=== PATIENT | male | born 1975 | race Asian ===

== ENCOUNTER 2019-12-12 04:34 | Emergency (ER) | payer OTHER ==
[~2019-12-12] VITALS: Ht 170.2 cm; Wt 95.0 kg
[2019-12-12] MEDS ORDERED: BUPR100T3 PO (04:42)
[2019-12-12] MEDS ORDERED: PRAZ2CAP PO (04:42)
[2019-12-12] MEDS ORDERED: BUPR150T5 PO (04:42)
[2019-12-12] MEDS ORDERED: SERT-141 PO (04:42)
[2019-12-12] MEDS ORDERED: NS 1,000 ML IV ONE (05:30)
[2019-12-12 05:39] LABS: BASO % 0.4 % (0.0-1.0); EOS # 0.1 10^3/uL (0.0-0.5); EOS % 1.4 % (0.0-3.0); HEMATOCRIT 46.9 % (42.0-52.0); HEMOGLOBIN 13.9 g/dl (13.5-17.5); LYMPH # 2.1 10^3/uL (1.5-5.0); LYMPH % 20.4 % (24.0-44.0); MEAN CORPUSCULAR HGB CONC 29.6 g/dl (32.0-36.5); MEAN CORPUSCULAR VOLUME 67.4 fl (80.0-96.0); MONO # 0.8 10^3/uL (0.0-0.8); MONO % 7.3 % (0.0-5.0); NEUTROPHILS # 7.3 10^3/uL (1.5-8.5); NEUTROPHILS % 70.2 % (36.0-66.0); PLATELET COUNT, AUTOMATED 223 10^3/uL (150-450); RED BLOOD COUNT 6.96 10^6/uL (4.30-6.10); WHITE BLOOD COUNT 10.4 10^3/uL (4.0-10.0)
[2019-12-12 06:04] LABS: BILIRUBIN,DIRECT 0.7 MG/DL (0.0-0.2); BILIRUBIN,TOTAL 1.2 MG/DL (0.2-1.0); MB/CK RELATIVE INDEX 0.56 (< OR =4); TOTAL PROTEIN 7.9 GM/DL (6.4-8.2); TROPONIN I 0.05 NG/ML (< 0.10)
[2019-12-12] MEDS ORDERED: ISOVUE-370 76% 100ML VIAL (Q9967) As Ordered ONE (06:25)
[2019-12-12] MEDS ORDERED: KETOROLAC 30 MG/ML VIAL (J1885) IV ONE (06:30)
--- NOTE | 2019-12-12 06:50 | REPVR ---
PROCEDURE INFORMATION: Exam: CT Abdomen And Pelvis With Contrast Exam date and time: 12/12/2019 6:20 AM Age: 44 years old Clinical indication: Abdominal pain; Localized; Right; Additional info: Right sided abd pain TECHNIQUE: Imaging protocol: Computed tomography of the abdomen and pelvis with intravenous contrast. Radiation optimization: All CT scans at this facility use at least one of these dose optimization techniques: automated exposure control; mA and/or kV adjustment per patient size (includes targeted exams where dose is matched to clinical indication); or iterative reconstruction. Contrast material: ISO; Contrast volume: 100 ml; Contrast route: AC; COMPARISON: No relevant prior studies available. FINDINGS: Lungs: A small amount of atelectasis is seen in the visualized lung bases. Diaphragm: There is elevation of the right hemidiaphragm. Liver: There is a heterogeneous decrease in hepatic parenchymal density, consistent with fatty infiltration. Gallbladder and bile ducts: Gallstones are present in the fundus of the gallbladder. There is equivocal mild thickening of the gallbladder wall. There are no adjacent inflammatory changes. There is a calcified stone in the distal common bile duct measuring 7 mm in diameter. The common bile duct is mildly dilated, measuring 8 mm in the supra pancreatic portion. Pancreas: The pancreas is normal with no ductal dilation. Spleen: The spleen is normal. Adrenals: The adrenal glands are normal. Kidneys and ureters: There is a 12 mm simple cyst in the left kidney. No imaging follow-up needed. The right kidney is normal. There are no ureteral stones or hydronephrosis. Stomach and bowel: The small bowel appears unremarkable. There is no dilation or thickening of the colon. Appendix: A normal appendix is identified. Intraperitoneal space: There is no evidence of free intraperitoneal or pelvic fluid. There is no free intraperitoneal air. Vasculature: No aortic aneurysm. Lymph nodes: No lymphadenopathy is seen. Bladder: The bladder is unremarkable. No stones identified. Reproductive: The prostate gland and seminal vesicles are normal. Bones/joints: Mild degenerative endplate changes are noted in the visualized spine. Soft tissues: The soft tissues appear unremarkable. IMPRESSION: 1. Mild biliary ductal dilation and choledocholithiasis with a 7 mm calcified stone in the distal common bile duct. 2. Cholelithiasis. Equivocal mild gallbladder wall thickening. No adjacent inflammatory changes. COMMENTS: Consistent with the [employer]'s Incidental Findings Committee white paper (J Am Gini Radiol 2018): Any incidental cystic renal lesion classified in this report as too small to characterize or simple appearing is likely a benign cyst. No follow-up imaging is recommended for these lesions per consensus recommendations based on imaging criteria. Electronically signed by: Lulú Harvey On 12/12/2019 06:50:13 AM
--- NOTE | 2019-12-12 06:55 | REPVR ---
PROCEDURE INFORMATION: Exam: US Abdomen Limited, Right Upper Quadrant Exam date and time: 12/12/2019 6:46 AM Age: 44 years old Clinical indication: Abdominal pain; Epigastric; Additional info: Ruq abd pain TECHNIQUE: Imaging protocol: Real-time ultrasound of the abdomen with image documentation. Examination was focused on the right upper quadrant. COMPARISON: CT ABD/PEL W/IV CONTRAST ONLY 12/12/2019 6:29 AM FINDINGS: Limitations: Examination is somewhat limited related to body habitus and bowel gas. Liver: The liver is echogenic with attenuation of the ultrasound beam, consistent with fatty liver. Gallbladder: Gallstones are present. There is no significant gallbladder wall thickening . The gallbladder wall measures 3 mm in thickness. The agricultural research technologist reports a negative Garcia's sign. Common bile duct: The common bile duct is not seen in its entirety. Where visible, it appears normal in size measuring 5 mm. Pancreas: The pancreas is obscured by bowel gas. Right kidney: The right kidney is normal in size and echogenicity with no hydronephrosis or stones identified. The right kidney measures 11.1 cm in length. IMPRESSION: 1. Cholelithiasis, as seen on the CT scan. No signs of acute cholecystitis. 2. Limited visibility of the bile duct and the pancreas. Biliary ductal dilation and choledocholithiasis identified on CT are not visible on this exam. 3. Fatty liver, as seen on the CT scan. Electronically signed by: Lulú Harvey On 12/12/2019 06:54:34 AM
[2019-12-12] MEDS ORDERED: LEVS0.124 SL (07:21)
[2019-12-12 07:44] VITALS: BP 140/84
--- NOTE | 2019-12-12 15:58 | ED PDOC ---
Post-Departure Follow-Up ft zayda marks faxed formal report of ct abd/p for fu Jono Vuong MD Dec 12, 2019 15:58
--- NOTE | 2019-12-12 15:59 | ED PDOC ---
Post-Departure Follow-Up gb us also faxed to bree marks for fu Jono Vuong MD Dec 12, 2019 15:59
[2019-12-13] MEDS ORDERED: HYOS0.1214 PO (06:10)
[2019-12-13] MEDS ORDERED: PRAZ2CAP PO (06:10)
[2019-12-13] MEDS ORDERED: BUPR150T3 PO (06:10)
[2019-12-13] MEDS ORDERED: D3 A1000 PO (06:10)
== END 2019-12-12 07:49 | disposition home or self-care (01) ==
LOC: M ED 04:34
DX: K80.70 Calculus of gallbladder and bile duct without cholecystitis without obstruction (principal); F43.10 Post-traumatic stress disorder, unspecified; Z79.899 Other long term (current) drug therapy
CPT/HCPCS: 74177; 76705; 80047; 80076; 82550; 82553; 83690; 84484; 85025; 93041; 96374; 99284; J1885; Q9967

== ENCOUNTER 2019-12-13 02:40 | Inpatient (IN) | payer OTHER ==
[~2019-12-13] VITALS: Ht 170.2 cm; Wt 95.0 kg
[2019-12-13] VITALS (10 sets, daily range): BP systolic 119–158; BP diastolic 63–85
[~2019-12-13 02:40] MED LIST: BUPR100T3 PO; BUPR150T5 PO; LEVS0.124 SL; PRAZ2CAP PO; SERT-141 PO
[2019-12-13] MEDS ORDERED: NS 1,000 ML IV ONE (03:30)
[2019-12-13 03:40] LABS: BASO % 0.5 % (0.0-1.0); EOS # 0.1 10^3/uL (0.0-0.5); HEMATOCRIT 44.9 % (42.0-52.0); HEMOGLOBIN 13.7 g/dl (13.5-17.5); LYMPH # 1.1 10^3/uL (1.5-5.0); MEAN CORPUSCULAR HEMOGLOBIN 20.2 pg (27.0-33.0); MEAN CORPUSCULAR HGB CONC 30.5 g/dl (32.0-36.5); MEAN CORPUSCULAR VOLUME 66.2 fl (80.0-96.0); MONO # 0.5 10^3/uL (0.0-0.8); MONO % 6.7 % (0.0-5.0); NEUTROPHILS # 6.3 10^3/uL (1.5-8.5); NEUTROPHILS % 77.6 % (36.0-66.0); PLATELET COUNT, AUTOMATED 210 10^3/uL (150-450); RED BLOOD COUNT 6.78 10^6/uL (4.30-6.10); WHITE BLOOD COUNT 8.1 10^3/uL (4.0-10.0)
[2019-12-13] MEDS ORDERED: KETOROLAC 30 MG/ML VIAL (J1885) IV ONE (04:00)
[2019-12-13 04:21] LABS: ALBUMIN 3.6 GM/DL (3.2-5.2); BILIRUBIN,DIRECT 4.2 MG/DL (0.0-0.2); BILIRUBIN,TOTAL 5.9 MG/DL (0.2-1.0); TOTAL PROTEIN 7.4 GM/DL (6.4-8.2)
--- NOTE | 2019-12-13 05:13 | REPVR ---
PROCEDURE INFORMATION: Exam: US Abdomen Limited, Right Upper Quadrant Exam date and time: 12/13/19 (4:13am) Age: 44 years old Clinical indication: RUQ / epigastric pain TECHNIQUE: Imaging protocol: Real-time ultrasound of the abdomen with image documentation. Examination was focused on the right upper quadrant. COMPARISON: US ABDOMEN (limited) of 12/12/19 (6:42am) FINDINGS: The liver is visually normal in size, with fatty infiltration. Distended gallbladder, containing multiple echogenic gallstones. Gallbladder fold. The gallbladder has normal wall thickness (2.8 mm). No pericholecystic fluid is appreciated. The sonographic Garcia's sign is reported to be (-). The CBD is mildly dilated (5.5 mm diameter). The pancreas is obscured by bowel gas. The right kidney measures 11.3 cm in length, with no hydronephrosis appreciated. No ascites is seen. IMPRESSION: No definite evidence of acute cholecystitis. Distended gallbladder, containing multiple stones. Normal gallbladder wall thickness. The sonographic Garcia's sign is reported to be (-). The CBD is mildly dilated (distal CBD stone seen on recent CT scan). In general, similar findings were noted on ultrasound done 22 hours ago. Electronically signed by: Italia Ashford On 12/13/2019 05:12:53 AM
[2019-12-13] MEDS ORDERED: MORPHINE 4 MG/ML 1ML VIAL/SYRINGE (J2270) IV PRN ×2 (05:45→06:15)
[2019-12-13] MEDS ORDERED: ONDANSETRON 4MG/2ML VIAL (J2405) IV ONE (05:45)
[2019-12-13] MEDS ORDERED: HYOS0.1214 PO (06:10)
[2019-12-13] MEDS ORDERED: D3 A1000 PO (06:10)
[2019-12-13] MEDS ORDERED: BUPR150T3 PO (06:10)
[2019-12-13] MEDS ORDERED: PRAZ2CAP PO (06:10)
[2019-12-13] MEDS ORDERED: MAALOX 30 ML SUSP *UDC PO PRN (06:15)
[2019-12-13] MEDS ORDERED: MOM 30ML SUSPENSION UDC PO PRN (06:15)
--- NOTE | 2019-12-13 06:29 | HPEPDOC ---
General Date of Admission Date of Service: Dec 13, 2019 Chief Complaint The patient is a 44-year-old male admitted with a reason for visit of Abd Pain. Source: Patient Timing/Duration: 24 hours Severity: Severe Associated Symptoms: Loss of appetite, Nausea History of Present Illness 44-year-old male with past history of PTSD presents for worsening abdominal pain. Patient was seen in the ER yesterday for similar complaints. Workup at that time revealed a distal common bile duct stone with some mild elevated transaminitis noted as well. However, after pain control patient was discharged from the ER with instructions to follow-up with his PCP. Patient presents today as he states that his pain got much worse and he also developed jaundice. Patient says that around 1 AM this morning, he felt severe right upper quadrant pain characterized as 10 out of 10 in intensity. The pain is colicky in nature and has now started to radiate to his back. Given his pain, his dropped off at the ER for further evaluation. Patient denies any recent fevers, chills, short of breath, chest pain, episodes of vomiting. He does state that his urine is now a dark red color and he has not had a bowel movement since yesterday. He also noted that his skin has been turning more yellow over the past several days as well. He denies any pruritus at the moment. Repeat ultrasound of the abdomen reveals similar findings to yesterday with some mild CBD dilation. Labs however reveal a significant jump in liver enzymes and serum bilirubin. Patient denies any recent travel history or sick contacts. He currently lives at home with his and works in the [employer]. He is a nonsmoker, nondrinker, nondrug user. Hospitalist called for admission for management of likely choledocholithiasis. 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 A-FIB/CHADSVASC A-FIB History Current/History of A-Fib/PAF?: No Review of Systems Constitutional: Denies: Chills, Fever, Night Sweats, Weakness, Fatigue Eyes: Reports: Pain, Other (yellowing of eyes); Denies: Vision change ENT: Denies: Head Aches, Ear Pain, Sore Throat Skin: Reports: Jaundice; Denies: Rash, Lesions Pulmonary: Denies: Dyspnea, Cough Cardiovascular: Denies: Chest Pain, Palpitations, Orthopnea, Edema Gastrointestinal: Reports: Nausea, Abdominal Pain; Denies: Vomiting, Diarrhea, Constipation, Melena Genitourinary: Reports: Other Symptoms (darkening of urine); Denies: Dysuria, Frequency Hematologic: Denies: Bruising Musculoskeletal: Reports: Back Pain; Denies: Shoulder Pain, Arm Pain, Muscle Pain, Spasms Psych: Reports: Mood Normal; Denies: Anxiety, Depression, Thoughts of Self Harm Physical Examination General Exam: Positive: Alert, Mild Distress, Other (patient appears to be uncomfortable in bed, holding his abdomen with his eyes closed. Able to conversation and is pleasant.) Eye Exam: Positive: PERRLA, EOMI, Sclera icteric ENT Exam: Positive: Atraumatic, Mucous membr. moist/pink; Negative: Pharyngeal Edema Neck Exam: Positive: Supple, +2 carotid pulse wo bruit; Negative: JVD Chest Exam: Positive: Clear to auscultation, Normal air movement Heart Exam: Positive: Rate Normal, Regular Rhythm, Normal S1, Normal S2; Negative: Gallops, Murmurs, Rubs Abdomen Exam: Positive: Normal bowel sounds, Soft, Tenderness (tender to palpation of the right upper quadrant with equivocal Garcia sign on my exam, some voluntary guarding); Negative: Hepatospenomegaly, Mass Extremity Exam: Positive: Normal pulses; Negative: Clubbing, Edema Skin Exam: Positive: Nl turgor and temperature, Other skin issue (jaundice of the skin noted); Negative: Rash Neuro Exam: Positive: Normal Gait, Normal Speech, Strength at 5/5 X4 ext, Normal Tone, Cranial Nerves 3-12 NL Psych Exam: Positive: Mental status NL, Mood NL Vital Signs Vital Signs Date Time Temp Pulse Resp B/P (MAP) Pulse Ox O2 Delivery O2 Flow Rate FiO2 12/13/19 05:57 66 15 122/70 (87) 99 12/13/19 02:40 97.9 Laboratory Data Labs 24H Laboratory Tests 2 12/13/19 03:32: Immature Granulocyte % (Auto) 0.2, Neutrophils (%) (Auto) 77.6H, Lymphocytes (%) (Auto) 14.0L, Monocytes (%) (Auto) 6.7H, Eosinophils (%) (Auto) 1.0, Basophils (%) (Auto) 0.5, Neutrophils # (Auto) 6.3, Lymphocytes # (Auto) 1.1L, Monocytes # (Auto) 0.5, Eosinophils # (Auto) 0.1, Basophils # (Auto) 0.0, Nucleated Red Blood Cells % (auto) 0.0, Total Bilirubin 5.9#H, Direct Bilirubin 4.2H, Aspartate Amino Transf (AST/SGOT) 827H, Alanine Aminotransferase (ALT/SGPT) 955H, Alkaline Phosphatase 110, Total Protein 7.4, Albumin 3.6, Albumin/Globulin Ratio 0.95L, Lipase 265 12/13/19 03:37: POC Glucose (Misc Panel) 167H, POC Sodium (Misc Panel) 138, POC Potassium (Misc Panel) 3.8, POC Chloride (Misc Panel) 100, POC Total CO2 (Misc Panel) 26.0, POC Blood Urea Nitrogen (Misc Panel 13, POC Ionized Calcium (Misc Panel) 4.5, POC Creatinine (Misc Panel) 1.2, POC Hematocrit (Misc Panel) 46.0 12/13/19 04:58: Urine Color MARGO, Urine Appearance CLEAR, Urine pH 7.0, Urine Specific Harvey 1.013, Urine Protein NEGATIVE, Urine Glucose (UA) NEGATIVE, Urine Ketones NEGATIVE, Urine Blood 1+H, Urine Nitrite NEGATIVE, Urine Bilirubin 1+H, Urine Urobilinogen 2.0H, Urine Leukocyte Esterase NEGATIVE, Urine WBC (Auto) 0, Urine RBC (Auto) 7H, Urine Hyaline Casts (Auto) 0, Urine Bacteria (Auto) NEGATIVE, Urine Squamous Epithelial Cells 0, Urine Mucus (Auto) SMALL, Urine Sperm (Auto) CBC/BMP Laboratory Tests 12/13/19 03:32 RAD Interpretation STUDY: ultrasound abdomen Rad Actions: Report Reviewed, Films Reviewed, Discussed with the pt RAD Interpretation: Unchanged (no evidence of acute cholecystitis, mild dilation of the common bile duct, gallstones seen) Assessment/Plan 44-year-old male presents with abdominal pain likely secondary to gallstones. Concern for obstruction at this time given elevating transaminitis as well as increase in serum bilirubin causing jaundice. Patient require MRCP for further evaluation and will likely need GI consult if stone is seen. Given his symptomatic presentation, surgery will likely need to be an option at this time. We'll admit for pain control further workup. Plan / VTE VTE Prophylaxis Ordered?: Yes Plan Plan Right upper quadrant pain, transaminitis, elevating bilirubin likely secondary to choledocholithiasis Patient appears to have an obstruction in the bile ducts leading to transaminitis and a Esther static pattern with increase in serum bilirubin overnight. Patient appears to be jaundiced at this time as well. Ultrasound does show distal common bile duct stone as well as CT from last night. Patient will need to undergo MRCP at this time for further evaluation. - Nothing by mouth for now - Start IVF at 150 mL per hour normal saline - IV Morphine 4 mg when necessary every 4 hours - MRCP today - If stone is seen, will need urgent GI consult for ERCP - Will need surgery consult once workup is complete for cholecystectomy - Monitor serum bilirubin, LFTs daily PTSD Currently mood is stable. Will continue with all medications at this time - Continue with sertraline, buproprion, and prazosin as per home dose. IVF: Initiate Diet: Make NPO Activity: Continue Current Medications: Increase Pain Meds Diagnostics: Check Labs, MRI Anticipated Discharge: Home MONET CHADWICK MD Dec 13, 2019 06:29
[2019-12-13] MEDS ORDERED: ONDANSETRON 4MG/2ML VIAL (J2405) IV PRN ×2 (06:30→16:30)
[2019-12-13] MEDS: NS 1,000 ML IV SCH ×2 (08:12→18:06)
[2019-12-13] MEDS: DOCUSATE SODIUM 100 MG CAP PO SCH ×2 (08:12→20:24)
[2019-12-13] MEDS: SERTRALINE HCL 50 MG TAB PO SCH (08:12)
[2019-12-13] MEDS: buPROPion **XL** TABLET 150MG (WELLBUTRIN XL) PO SCH (08:12)
--- NOTE | 2019-12-13 10:08 | REP ---
MRCP: MRCP is accomplished utilizing multiple heavily T2-weighted sequences in the axial and coronal planes. 3D MIP reconstruction images are performed. Gallbladder demonstrates multiple gallstones. Gallbladder is mildly distended. Common hepatic duct is upper limits of normal at 7 mm. Common bile duct has a maximum diameter of 5 mm. There is no intrahepatic biliary dilatation. There is a filling defect and calculus in the distal common bile duct 6 mm in diameter. Pancreatic duct is normal in caliber. Oval hyperintensity in the left lobe of the liver superiorly measures 1.4 cm in maximum diameter. This probably represents a small hemangioma. Spleen is normal in size. Adrenal glands are unremarkable. There is a small cyst of the upper pole of the left kidney measuring 1 cm in diameter. There is no evidence of adenopathy or free fluid. IMPRESSION: Multiple gallstones in the gallbladder. 6 mm stone in the distal common bile duct. The common hepatic duct measures 7 mm, at the upper limits of normal. Electronically Signed by Matthew Bronson MD 12/13/2019 10:53 A
[2019-12-13] MEDS ORDERED: ISOVUE-300 61% 50ML VIAL (Q9967) As Ordered ONE ×2 (14:41→15:41)
[2019-12-13] MEDS ORDERED: ROCURONIUM BROMIDE 50 MG/5 ML VIAL As Ordered ONE (14:47)
[2019-12-13] MEDS ORDERED: LIDOCAINE 2% INJ 100 MG/5 ML SDV (FOR ANES.) As Ordered ONE (14:47)
[2019-12-13] MEDS ORDERED: MIDAZOLAM INJ 2 MG/2 ML VIAL (J2250) As Ordered ONE (14:47)
[2019-12-13] MEDS ORDERED: fentaNYL 100 MCG/2 ML INJECTION (J3010) As Ordered ONE (14:47)
[2019-12-13] MEDS ORDERED: propofoL 200 MG/20 ML VIAL As Ordered ONE ×2 (14:47→15:44)
[2019-12-13] MEDS ORDERED: dexameTHASONE 4 MG/ML 1ML VIAL (J1100) As Ordered ONE (15:15)
[2019-12-13] MEDS ORDERED: ONDANSETRON 4MG/2ML VIAL (J2405) As Ordered ONE (15:32)
[2019-12-13] MEDS ORDERED: PHENYLephrine HCL 500 MCG/5 ML (100MCG/ML) SYRINGE (J2370) As Ordered ONE (15:33)
[2019-12-13] MEDS ORDERED: SUGAMMADEX SODIUM 500 MG/5 ML VIAL (BRIDION) As Ordered ONE (15:43)
--- NOTE | 2019-12-13 15:50 | IPNPDOC ---
Date Seen The patient was seen on 12/13/19. Progress Note SUBJECTIVE: Patient was seen and examined at the bedside this morning. He reports that his pain is well-controlled. He denies any nausea/vomiting/diarrhea at this time. All of his questions regarding his impending ERCP were answered. OBJECTIVE PHYSICAL EXAMINATION: VITAL SIGNS: Please see below. GENERAL APPEARANCE: Laying in bed, appears stated age, no acute distress, calm, cooperative HEENT: EOMI, PERRLA, neck is supple with no thyromegaly or lymphadenopathy RESPIRATORY: Lungs are clear to auscultation bilaterally with no adventitious breath sounds appreciated CARDIOVASCULAR: no JVD, RRR,no murmurs/rubs/gallops ABDOMEN: slightly tender to palpation in epigastrum and RUQ, +BS, no masses or organomegaly EXTREMITIES: no clubbing, cyanosis or edema noted NEUROLOGICAL: No obvious focal deficits PSYCHIATRIC: normal mood/affect Skin: No rashes or ulcers. LN: No significant cervical or inguinal lymphadenopathy LABORATORY DATA, IMAGING STUDIES, MICROBIOLOGY: Please see below. DVT prophylaxis ordered?: none ASSESSMENT AND PLAN: This is a 44-year male who presented to the emergency room with abdominal pain, epigastric and right upper quadrant found to have gallstones. He will go for ERCP today. PROBLEMS: 1. Choledocholithiasis: -GI consulted. Plan for ERCP at 1600 today. -Pain management with IV Morphine 4mg Q4H PRN -IV Zofran -IVF NS 150cc/hr -Will start diet after procedure -Will trend LFTs, bilirubin DISPOSITION: Pending ERCP, resolution of transaminitis, will start diet, possible dc within 48h VS, I&O, 24H, Priscilla Vital Signs/I&O Vital Signs Date Time Temp Pulse Resp B/P (MAP) Pulse Ox O2 Delivery O2 Flow Rate FiO2 12/13/19 14:00 99.8 78 18 155/85 (108) 99 I&O- Last 24 Hours up to 6 AM 12/13/19 06:00 Intake Total 1000 ml Balance 1000 ml Laboratory Data 24H LABS Laboratory Tests 2 12/13/19 03:32: Immature Granulocyte % (Auto) 0.2, Neutrophils (%) (Auto) 77.6H, Lymphocytes (%) (Auto) 14.0L, Monocytes (%) (Auto) 6.7H, Eosinophils (%) (Auto) 1.0, Basophils (%) (Auto) 0.5, Neutrophils # (Auto) 6.3, Lymphocytes # (Auto) 1.1L, Monocytes # (Auto) 0.5, Eosinophils # (Auto) 0.1, Basophils # (Auto) 0.0, Nucleated Red Blood Cells % (auto) 0.0, Total Bilirubin 5.9#H, Direct Bilirubin 4.2H, Aspartate Amino Transf (AST/SGOT) 827H, Alanine Aminotransferase (ALT/SGPT) 955H, Alkaline Phosphatase 110, Total Protein 7.4, Albumin 3.6, Albumin/Globulin Ratio 0.95L, Lipase 265 12/13/19 03:37: POC Glucose (Misc Panel) 167H, POC Sodium (Misc Panel) 138, POC Potassium (Misc Panel) 3.8, POC Chloride (Misc Panel) 100, POC Total CO2 (Misc Panel) 26.0, POC Blood Urea Nitrogen (Misc Panel 13, POC Ionized Calcium (Misc Panel) 4.5, POC Creatinine (Misc Panel) 1.2, POC Hematocrit (Misc Panel) 46.0 12/13/19 04:58: Urine Color MARGO, Urine Appearance CLEAR, Urine pH 7.0, Urine Specific Umbarger 1.013, Urine Protein NEGATIVE, Urine Glucose (UA) NEGATIVE, Urine Ketones NEGA TIVE, Urine Blood 1+H, Urine Nitrite NEGATIVE, Urine Bilirubin 1+H, Urine Urobilinogen 2.0H, Urine Leukocyte Esterase NEGATIVE, Urine WBC (Auto) 0, Urine RBC (Auto) 7H, Urine Hyaline Casts (Auto) 0, Urine Bacteria (Auto) NEGATIVE, Urine Squamous Epithelial Cells 0, Urine Mucus (Auto) SMALL, Urine Sperm (Auto) CBC/BMP Laboratory Tests 12/13/19 03:32 GME ATTESTATION GME ATTESTATION My faculty preceptor for this patient encounter was physically present during the encounter and was fully available. All aspects of the patient interview, examination, medical decision making process, and medical care plan development were reviewed and approved by the faculty preceptor. The faculty preceptor is aware and concurs with the plan as stated in the body of this note and will attest to such by his/her cosignature. MEENA HUGHES MD Dec 13, 2019 15:50
--- NOTE | 2019-12-13 15:56 | ROOR ---
Patient Name: Zohaib Gage Procedure Date: 12/13/2019 2:49 PM Date of : 1975 Age: 44 Room: Main OR Gender: Male Note Status: Finalized Procedure: ERCP Indications: Abdominal pain of suspected biliary origin, Abnormal MRCP, Evaluation and possible treatment of bile duct stone(s), Jaundice Providers: Joao HONEYCUTT MD Referring MD: 2. Inpatient 2. Inpatient Requesting Provider: Medicines: Monitored Anesthesia Care Complications: No immediate complications. Procedure: Pre-Anesthesia Assessment: - The heart rate, respiratory rate, oxygen saturations, blood pressure, adequacy of pulmonary ventilation, and response to care were monitored throughout the procedure. The Duodenoscope was introduced through the mouth, and advanced to the duodenum and used to inject contrast into the bile duct. The ERCP was accomplished without difficulty. The patient tolerated the procedure well. Findings: The wound care specialist film was normal. The esophagus was successfully intubated under direct vision. The scope was advanced to a normal major papilla in the descending duodenum without detailed examination of the pharynx, larynx and associated structures, and upper GI tract. The upper GI tract was grossly normal. A wire was passed into the biliary tree. The bile duct was then deeply cannulated over the guidewire. Contrast was injected. I personally interpreted the bile duct images. Ductal flow of contrast was adequate. Image quality was adequate. Contrast extended to the entire biliary tree. Choledocholithiasis was found in a minimally dilated/nondilated duct. Opacification of the main bile duct was successful. The maximum diameter of the ducts was 6-7 mm. The in the biliary system contained one stone, which was 5 mm in diameter. A 7 mm biliary sphincterotomy was made with a traction (standard) sphincterotome using ERBE electrocautery. There was no post-sphincterotomy bleeding. The biliary tree was swept with a 9 mm balloon starting at the bifurcation. All stones were removed. Impression: - Choledocholithiasis was found. Complete removal was accomplished by biliary sphincterotomy and balloon extraction. - A biliary sphincterotomy was performed. - The biliary tree was swept. Recommendation: - Surgical consultation with Dr Hugo as outpatient for consideration of cholecystectomy at the next available appointment. - [facility]. - [facility] to [facility] for possible discharge same day. - Low fat diet. - Advance diet as tolerated. Joao Honeycutt MD Joao HONEYCUTT MD 12/13/2019 3:56:10 PM Electronically signed by Joao HONEYCUTT MD Number of Addenda: 0 Note Initiated On: 12/13/2019 2:49 PM Estimated Blood Loss: Estimated blood loss: none.
[2019-12-13] MEDS ORDERED: LR 1,000 ML IV SCH (16:30)
[2019-12-13] MEDS ORDERED: fentaNYL 100 MCG/2 ML INJECTION (J3010) IV PRN (16:30)
--- NOTE | 2019-12-13 16:37 | REP ---
HISTORY: Fluoroscopy provided Dr. Joao Honeycutt during common bile duct stone extraction. 5 minutes 48 seconds of fluoroscopy time was provided Dr. Honeycutt for the procedure. 21 images were obtained in my absentia using a portable C-Arm device. The images have been submitted to the department of radiology for review. Electronically Signed by Roque Rao DO 12/13/2019 05:23 P
[2019-12-13] MEDS ORDERED: PRAZOSIN 1 MG CAP PO SCH (21:00)
[2019-12-14] MEDS: NS 1,000 ML IV SCH ×2 (00:31→02:15)
[2019-12-14 02:00] VITALS: BP 116/69
[2019-12-14 05:55] LABS: HEMATOCRIT 39.1 % (42.0-52.0); HEMOGLOBIN 12.1 g/dl (13.5-17.5); MEAN CORPUSCULAR HEMOGLOBIN 20.6 pg (27.0-33.0); MEAN CORPUSCULAR HGB CONC 30.9 g/dl (32.0-36.5); MEAN CORPUSCULAR VOLUME 66.7 fl (80.0-96.0); PLATELET COUNT, AUTOMATED 179 10^3/uL (150-450); RED BLOOD COUNT 5.86 10^6/uL (4.30-6.10)
[2019-12-14 06:00] VITALS: BP 129/71
[2019-12-14 06:17] LABS: ALT/SGPT 689 U/L (12-78); BILIRUBIN,TOTAL 4.1 MG/DL (0.2-1.0); BLOOD UREA NITROGEN 8 MG/DL (7-18); CALCIUM LEVEL 8.1 MG/DL (8.5-10.1); CARBON DIOXIDE LEVEL 27 MEQ/L (21-32); CHLORIDE LEVEL 109 MEQ/L (98-107); GLOMERULAR FILTRATION RATE > 60.0 (>60); GLUCOSE, FASTING 112 MG/DL (70-100); POTASSIUM SERUM 3.6 MEQ/L (3.5-5.1); SODIUM LEVEL 142 MEQ/L (136-145); TOTAL PROTEIN 6.4 GM/DL (6.4-8.2)
[2019-12-14] MEDS: DOCUSATE SODIUM 100 MG CAP PO SCH (09:00)
[2019-12-14 10:00] VITALS: BP 133/68
[2019-12-14] MEDS: SERTRALINE HCL 50 MG TAB PO SCH (10:06)
[2019-12-14] MEDS: buPROPion **XL** TABLET 150MG (WELLBUTRIN XL) PO SCH (10:06)
[2019-12-14] MEDS ORDERED: KETO10TAB PO (12:11)
--- NOTE | 2019-12-14 15:55 | DS.PDOC ---
Discharge Summary General Date of Admission Dec 13, 2019 at 06:03 Date of Discharge December 14, 2019 Attending Physician: NAZIA GARCIA DO Specialist/Consultants Involve: KEY BYRNE MD Discharge Summary PROCEDURES PERFORMED DURING STAY: [None]. ADMITTING DIAGNOSES: 1. Choledocholithiasis DISCHARGE DIAGNOSES: 1. Choledocholithiasis COMPLICATIONS/CHIEF COMPLAINT: Choledoclithiasis With Obstruction. HISTORY OF PRESENT ILLNESS: 44-year-old male with past history of PTSD presents for worsening abdominal pain. Patient was seen in the ER yesterday for similar complaints. Workup at that time revealed a distal common bile duct stone with some mild elevated transaminitis noted as well. However, after pain control patient was discharged from the ER with instructions to follow-up with his PCP. Patient presents today as he states that his pain got much worse and he also developed jaundice. Patient says that around 1 AM this morning, he felt severe right upper quadrant pain characterized as 10 out of 10 in intensity. The pain is colicky in nature and has now started to radiate to his back. Given his pain, his dropped off at the ER for further evaluation. Patient denies any recent fevers, chills, short of breath, chest pain, episodes of vomiting. He does state that his urine is now a dark red color and he has not had a bowel movement since yesterday. He also noted that his skin has been turning more yellow over the past several days as well. He denies any pruritus at the moment. Repeat ultrasound of the abdomen reveals similar findings to yesterday with some mild CBD dilation. Labs however reveal a significant jump in liver enzymes and serum bilirubin. Patient denies any recent travel history or sick contacts. He currently lives at home with his and works in the [employer]. He is a nonsmoker, nondrinker, nondrug user. Hospitalist called for admission for management of likely choledocholithiasis. HOSPITAL COURSE: The patient presented with abdominal pain and nausea found to have dilated gallbladder and CBD, gallstones on gallbladder US. An MRCP was performed and patient was found to have 6mm stone in distal common bile duct. Procedure was without complications. Liver enzymes trended down on HD #2. Patient was able to tolerate diet and pain was well managed. He was discharged with 5 days Toradol 10mg and instructed to follow up with Dr. Barayuga in outpatient setting for evaluation for cholecystectomy. DISCHARGE MEDICATIONS: Please see below. ALLERGIES: Please see below. PHYSICAL EXAMINATION ON DISCHARGE: VITAL SIGNS: Please see below. GENERAL APPEARANCE: Laying in bed, appears stated age, no acute distress, calm, cooperative HEENT: EOMI, PERRLA, neck is supple with no thyromegaly or lymphadenopathy RESPIRATORY: Lungs are clear to auscultation bilaterally with no adventitious breath sounds appreciated CARDIOVASCULAR: no JVD, RRR,no murmurs/rubs/gallops ABDOMEN: slightly tender to palpation in epigastrum and RUQ, +BS, no masses or organomegaly EXTREMITIES: no clubbing, cyanosis or edema noted NEUROLOGICAL: No obvious focal deficits PSYCHIATRIC: normal mood/affect Skin: No rashes or ulcers. LN: No significant cervical or inguinal lymphadenopathy LABORATORY DATA: Please see below. IMAGING: MRCP: MRCP is accomplished utilizing multiple heavily T2-weighted sequences in the axial and coronal planes. 3D MIP reconstruction images are performed. Gallbladder demonstrates multiple gallstones. Gallbladder is mildly distended. Common hepatic duct is upper limits of normal at 7 mm. Common bile duct has a maximum diameter of 5 mm. There is no intrahepatic biliary dilatation. There is a filling defect and calculus in the distal common bile duct 6 mm in diameter. Pancreatic duct is normal in caliber. Oval hyperintensity in the left lobe of the liver superiorly measures 1.4 cm in maximum diameter. This probably represents a small hemangioma. Spleen is normal in size. Adrenal glands are unremarkable. There is a small cyst of the upper pole of the left kidney measuring 1 cm in diameter. There is no evidence of adenopathy or free fluid. IMPRESSION: Multiple gallstones in the gallbladder. 6 mm stone in the distal common bile duct. The common hepatic duct measures 7 mm, at the upper limits of normal. GALLBLADDER US FINDINGS: The liver is visually normal in size, with fatty infiltration. Distended gallbladder, containing multiple echogenic gallstones. Gallbladder fold. The gallbladder has normal wall thickness (2.8 mm). No pericholecystic fluid is appreciated. The sonographic Garcia's sign is reported to be (-). The CBD is mildly dilated (5.5 mm diameter). The pancreas is obscured by bowel gas. The right kidney measures 11.3 cm in length, with no hydronephrosis appreciated. No ascites is seen. IMPRESSION: No definite evidence of acute cholecystitis. Distended gallbladder, containing multiple stones. Normal gallbladder wall thickness. The sonographic Garcia's sign is reported to be (-). The CBD is mildly dilated (distal CBD stone seen on recent CT scan). In general, similar findings were noted on ultrasound done 22 hours ago. PROGNOSIS: fair ACTIVITY: [As tolerated]. DIET: low fat diet DISCHARGE PLAN: home DISPOSITION: Home, Self-Care. DISCHARGE INSTRUCTIONS: 1. Follow up with Dr. Hugo on 12/17/2019 ITEMS TO FOLLOWUP ON ON OUTPATIENT: 1. none DISCHARGE CONDITION: [Stable]. TIME SPENT ON DISCHARGE: Greater than 40 minutes. Vital Signs/I&Os Vital Signs Date Time Temp Pulse Resp B/P (MAP) Pulse Ox O2 Delivery O2 Flow Rate FiO2 12/14/19 10:00 98.4 61 17 133/68 (89) 99 Room Air 12/13/19 16:18 10 I&O- Last 24 Hours up to 6 AM 12/14/19 06:00 Intake Total 3850 ml Output Total 0 ml Balance 3850 ml Laboratory Data Labs 24H Laboratory Tests 2 12/14/19 05:03: Nucleated Red Blood Cells % (auto) 0.0, Anion Gap 6L, Glomerular Filtration Rate > 60.0, Calcium Level 8.1L, Total Bilirubin 4.1H, Aspartate Amino Transf (AST/SGOT) 326H, Alanine Aminotransferase (ALT/SGPT) 689H, Alkaline Phosphatase 98, Total Protein 6.4, Albumin 3.0L, Albumin/Globulin Ratio 0.88L CBC/BMP Laboratory Tests 12/14/19 05:03 Discharge Medications Scheduled Bupropion Hcl (Bupropion Xl) 150 Mg Tab.er.24h, 150 MG PO DAILY, (Reported) Cholecalciferol (Vitamin D3) (Vitamin D3) 25 Mcg Tab.chew, 25 MCG PO DAILY, (Reported) Prazosin Hcl (Prazosin HCl) 2 Mg Capsule, 2 MG PO QHS, (Reported) Sertraline Hcl (Sertraline HCl) 50 Mg Tablet, 50 MG PO DAILY, (Reported) Scheduled PRN Hyoscyamine Sulfate (Hyoscyamine Sulfate) 0.125 Mg Tab.rapdis, 0.125 MG PO Q4H PRN for PAIN, (Reported) Ketorolac Tromethamine (Ketorolac Tromethamine) 10 Mg Tablet, 1 TAB PO Q6HP PRN for pain Allergies Coded Allergies: No Known Allergies (Unverified , 12/12/19) GME ATTESTATION GME ATTESTATION My faculty preceptor for this patient encounter was physically present during the encounter and was fully available. All aspects of the patient interview, examination, medical decision making process, and medical care plan development were reviewed and approved by the faculty preceptor. The faculty preceptor is aware and concurs with the plan as stated in the body of this note and will attest to such by his/her cosignature. MEENA HUGHES MD Dec 14, 2019 15:55
== END 2019-12-14 13:37 | disposition home or self-care (01) | DRG 446 ==
LOC: M ED 02:40 → M ED INP 06:03 → ENRESERVTM 06:27 → ENRESERVDT 06:27 → M MSPAV 08:00
PROVIDERS: ADMIT Internal Medicine; ATTEND Internal Medicine
PROC: 0FC98ZZ Extirpation of Matter from Common Bile Duct, Via Natural or Artificial Opening Endoscopic (ICD-10-PCS; principal; 2019-12-13 10:04)
DX: K80.71 Calculus of gallbladder and bile duct without cholecystitis with obstruction (principal); F43.10 Post-traumatic stress disorder, unspecified; Z91.82 Personal history of military deployment; Z79.899 Other long term (current) drug therapy

== ENCOUNTER → 2020-02-07 | Outpatient (CLI) | payer OTHER ==
[~2020-02-07] MED LIST changes: +BUPR150T3 PO; +D3 A1000 PO; +HYOS0.1214 PO; +KETO10TAB PO; +SERT-138 PO
--- NOTE | 2020-02-07 13:22 | ECGEPIP ---
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
== END ==
LOC: M EKG 11:59
PROVIDERS: ATTEND Anesthesiology
DX: Z01.818 Encounter for other preprocedural examination (principal); G47.30 Sleep apnea, unspecified

== ENCOUNTER → 2020-02-11 | Outpatient (CLI) | payer OTHER | LOC: M LABSMTC 10:12 | PROVIDERS: ATTEND Anesthesiology | DX: Z01.818 Encounter for other preprocedural examination (principal); Z11.59 Encounter for screening for other viral diseases | CPT/HCPCS: C9803; U0003 ==

== ENCOUNTER 2020-02-14 12:55 | Day surgery (SDC) | payer OTHER ==
[~2020-02-14] VITALS: Ht 170.2 cm; Wt 89.8 kg
[~2020-02-14 12:55] MED LIST changes: +LR 1,000 ML IV ONE
[2020-02-14] MEDS ORDERED: fentaNYL 250 MCG/5 ML INJECTION (J3010) As Ordered ONE (13:32)
[2020-02-14] MEDS ORDERED: ROCURONIUM BROMIDE 50 MG/5 ML VIAL As Ordered ONE (13:32)
[2020-02-14] MEDS ORDERED: LIDOCAINE 2% 100MG/5ML SDV (FOR ANES.) As Ordered ONE (13:32)
[2020-02-14] MEDS ORDERED: MIDAZOLAM INJ 2MG/2ML VIAL (J2250 PER 1MG) As Ordered ONE (13:32)
[2020-02-14] MEDS ORDERED: propofoL 200 MG/20 ML VIAL As Ordered ONE (13:32)
[2020-02-14] MEDS ORDERED: ONDANSETRON 4MG/2ML VIAL As Ordered ONE (13:33)
[2020-02-14] MEDS ORDERED: dexameTHASONE 4 MG/ML 1ML VIAL (J1100 PER 1MG) As Ordered ONE (13:33)
[2020-02-14] MEDS ORDERED: BUPIVACAINE/EPIN 0.25% 30 ML VIAL As Ordered ONE (14:23)
[2020-02-14] MEDS ORDERED: ePHEDrine SULFATE 25 MG/5 ML(5MG/ML) SYRINGE As Ordered ONE (15:04)
[2020-02-14] MEDS ORDERED: KETOROLAC 60 MG/2 ML VIAL As Ordered ONE (15:08)
[2020-02-14] MEDS ORDERED: SUGAMMADEX SODIUM 500 MG/5 ML VIAL (BRIDION) As Ordered ONE (15:08)
[2020-02-14] MEDS ORDERED: GLYCOPYRROLATE INJ 0.2 MG/ML 2 ML VIAL As Ordered ONE (15:08)
[2020-02-14] MEDS ORDERED: HYDROMORPHONE HCL 0.5 MG/ 0.5 ML SYRINGE (J1170 PER 1) IV PRN (16:30)
[2020-02-14] MEDS ORDERED: ONDANSETRON 4MG/2ML VIAL IV PRN (16:30)
[2020-02-14] MEDS ORDERED: NORCO, ANEXSIA 5/325MG TABLET (HYDROcodone/ACETAMINOPHEN) PO PRN (16:30)
[2020-02-14] MEDS ORDERED: LR 1,000 ML IV SCH (16:30)
[2020-02-14] MEDS: oxyCODONE 5MG TAB PO PRN ×2 (17:04→17:30)
[2020-02-14] MEDS: fentaNYL 100 MCG/2 ML INJECTION (J3010) IV PRN ×2 (17:06→17:16)
[2020-02-14 19:07] VITALS: BP 116/67
--- NOTE | 2020-02-21 10:18 | RO ---
DATE OF PROCEDURE: 02/14/2020 PREOPERATIVE DIAGNOSIS: Symptomatic cholelithiasis. POSTOPERATIVE DIAGNOSIS: Symptomatic cholelithiasis. PROCEDURE: Robotic cholecystectomy. SURGEON: Dr. Matthew Wyatt MECHANICAL PRODUCT ENGINEER: Patience Morris ANESTHESIA: General. ESTIMATED BLOOD LOSS: 5. COMPLICATIONS: None. INDICATIONS FOR PROCEDURE: The patient is a 44-year-old male who presents with right quadrant pain and found have symptomatic cholelithiasis. Recommendation was to proceed with robotic cholecystectomy. Risks and benefits of the procedure not limited to, but including bleeding, infection, hernia formation, damage to surrounding structures, need for further surgery were discussed in detail with the patient. Informed consent was obtained and the procedure was planned. DESCRIPTION OF PROCEDURE: The patient back to operating room seven, after sufficient sedation the abdomen was sterilely prepped and draped. Next a time out was done to confirm proper patient and proper procedure. Following that, an 8 mm incision made in the left lower quadrant, Veress needle was inserted and the abdomen was insufflated to 15 mmHg. Veress needle was then removed and an 8 mm robotic OptiVu port was used to gain access the abdomen. Once the abdomen was entered, three more robotic ports were placed across the upper abdomen. Next, the robot was docked to the ports. Next, the fundus of the gallbladder was elevated up towards the right shoulder. The cystic duct and cystic artery were carefully dissected free using a combination of blunt and sharp dissection. Once they were both dissected free, they were both doubly clipped and cut. The gallbladder was then dissected from the gallbladder fossa using electrocautery and then placed inside of a 5 mm EndoCatch bag. The gallbladder was then brought out through the right lateral port site. Once it was removed, the posterior fascia and peritoneum was closed with a running #2-0 V-Loc suture. Once that was completed, the abdomen was desufflated. The skin incisions were closed with #4-0 Vicryl subcuticular sutures. The abdomen was cleaned and dried. Steri-Strips, 4x4 and tape were applied, thus ending the procedure.
== END 2020-02-14 19:10 | disposition home or self-care (01) ==
LOC: M SDC 12:55
PROVIDERS: ATTEND Surgery
DX: K80.10 Calculus of gallbladder with chronic cholecystitis without obstruction (principal); G47.30 Sleep apnea, unspecified; F41.9 Anxiety disorder, unspecified; F32.9 Major depressive disorder, single episode, unspecified; Z79.899 Other long term (current) drug therapy
CPT/HCPCS: 47562; 88304; J1100; J1885; J2250; J2405; J3010

== ENCOUNTER → 2021-06-10 | Outpatient (REF) ==
[~2021-06-10] MED LIST changes: +BUPR150T12 PO; -BUPR150T3 PO; -LR 1,000 ML IV ONE
--- NOTE | 2021-06-10 15:38 | REP ---
INDICATION: SOB, PAIN. COMPARISON: No comparison chest x-ray. TECHNIQUE: Two views.. FINDINGS: The lungs are well inflated and free of infiltrate. The pleural angles are sharp. The heart size is normal. Pulmonary vasculature is not increased. No significant bony abnormality is seen. IMPRESSION: No active disease. <Electronically signed by Milo Maynard > 06/10/21 [id number]
--- NOTE | 2021-06-10 15:39 | REP ---
INDICATION: PAIN. COMPARISON: None. TECHNIQUE: Six views. Bilateral shoulder radiographs. FINDINGS: The glenohumeral and acromioclavicular joints are normally aligned bilaterally. There is mild AC joint hypertrophy consistent with osteoarthritis, left more so than right. Periarticular soft tissues are unremarkable. No erosive changes seen. Visualized ribs and lung park are unremarkable. There is some benign appearing pleural thickening on the right. IMPRESSION: Mild AC joint osteoarthritis. <Electronically signed by Milo Maynard > 06/10/21 [id number]
--- NOTE | 2021-06-10 15:47 | REP ---
INDICATION: SOB, PAIN. COMPARISON: June 16, 2007. TECHNIQUE: Four views. FINDINGS: Lateral views shows normal alignment in the cervical spine from C1 through C6. The C6-7 and C7 1 disc spaces are not well seen on swimmer's or lateral view. Mild discogenic spurring is seen anteriorly at the C5-6 level. AP view shows unremarkable cervical spine and cervicothoracic junction. Open mouth odontoid view shows normal alignment at C1-2. IMPRESSION: Suboptimal visualization of the lower cervical spine on lateral radiograph. Mild discogenic spurring anteriorly at C5-6. Otherwise negative. <Electronically signed by Milo Maynard > 06/10/21 [id number]
--- NOTE | 2021-06-10 15:57 | REP ---
INDICATION: PAIN. COMPARISON: None. TECHNIQUE: Four views, AP and lateral views of each elbow. Bilateral study. FINDINGS: AP and lateral views of each elbow are provided. Bones, joints, and soft tissues are unremarkable on the left. No joint effusion is seen on either side. There is minimal olecranon and coronoid process spurring on the right. IMPRESSION: Minimal right-sided spurring. Otherwise negative. <Electronically signed by Milo Maynard > 06/10/21 [id number]
--- NOTE | 2021-06-10 17:00 | REP ---
INDICATION: SOB, PAIN. COMPARISON: None. TECHNIQUE: AP, lateral, and spot lateral views are provided. FINDINGS: Lumbar vertebral body heights are preserved. Alignment is normal. There is discogenic spurring anteriorly at each lumbar level and at the visualized lower thoracic levels. The degenerative disc changes are most pronounced at L4-5. There is a minimal levoconvex curvature on the AP view. Pedicles and posterior elements are intact. There is no evidence of spondylolysis or spondylolisthesis. Sacrum and SI joints are unremarkable. Psoas margins are intact. IMPRESSION: Minimal levoconvex curvature. Diffuse mild degenerative disc disease. <Electronically signed by Milo Maynard > 06/10/21 [id number]
--- NOTE | 2021-06-10 17:04 | REP ---
INDICATION: SOB, PAIN. COMPARISON: None. TECHNIQUE: Bilateral knee radiographs, three views of each knee. AP, lateral, and sunrise views. FINDINGS: Three views of each knee demonstrate normal bones, joints and soft tissues. No evidence of joint effusion, joint space narrowing, or erosive change. There is minimal superior pole articular spurring of the patella on lateral radiograph of the right knee. IMPRESSION: Minimal right superior pole patellar spurring. Otherwise negative bilateral knee radiographs. <Electronically signed by Milo Maynard > 06/10/21 [id number]
== END ==
LOC: M PLAIMG 13:07
PROVIDERS: ATTEND Internal Medicine
DX: Z00.00 Encounter for general adult medical examination without abnormal findings (principal)

== ENCOUNTER → 2024-10-21 | Outpatient (CLI) | payer OTHER ==
[~2024-10-21] MED LIST changes: +BUPR-70 PO; +BUPR-71 PO; -BUPR100T3 PO; -BUPR150T5 PO; +CHOL25TA9 PO; -D3 A1000 PO; -HYOS0.1214 PO; +HYOS0.1282 PO
== END ==
LOC: M PLAIMG 06:56
PROVIDERS: ATTEND Pain Medicine Interventional Pain Medicine
DX: M54.16 Radiculopathy, lumbar region (principal)